=== PATIENT | female | born 1965 | race Caucasian/White ===

== ENCOUNTER 2021-02-25 14:19 | Outpatient (CLI) | payer BC, SELFPAY ==
[2021-02-25 14:23] VITALS: BP 133/85; PULSE 83; RESP 16; TEMP 36.6; O2SAT 97; BMI 35.4
[2021-02-25] MEDS: 0.9% Saline Lock 10 ML Syringe IV (14:25)
[2021-02-25 14:56] VITALS: BP 133/85; PULSE 73; RESP 16; TEMP 36.9; O2SAT 97
[2021-02-25 15:54] VITALS: BP 149/94; PULSE 76; RESP 16; TEMP 36.8; O2SAT 98
== END 2021-02-25 15:56 | disposition home or self-care (01) ==
LOC: MS3OUT 14:20 → MS3 14:20
PROVIDERS: PCP Internal Medicine; Referring Provider Internal Medicine Critical Care Medicine; Visit Provider Internal Medicine Critical Care Medicine
DX: Z23 Encounter for immunization (principal); U07.1 COVID-19
CPT/HCPCS: J7050; M0245; Q0245; A4216

== ENCOUNTER 2023-04-27 19:11 | Inpatient (IN) | payer BC, SELFPAY ==
[2023-04-27 19:17] VITALS: BP 143/70; PULSE 91; RESP 16; TEMP 37; O2SAT 97; BMI 40.9
--- NOTE | 2023-04-27 19:53 | EDS_ITS ---
HPI History of Present Illness Chief Complaint: ETOH Intox Informant: patient Narrative Narrative: Patient presents requesting help with alcohol detox. She has been drinking heavily since 2017. She states in the past when she tried to stop drinking she would get shaky and would have to take a drink to fend off the withdrawal. She is never had a withdrawal seizure. She is never been through a formal detox program. Her only other complaint is left knee pain. She twisted it yesterday and has some pain to the area. She is able to walk on it but does limp. [facility] Medical History (Updated 04/27/23 @ 19:[address] Nesha Conley MD) Arthritis Hx of gastroesophageal reflux (GERD) Knee pain Thyroid disease Home Medications levothyroxine 137 mcg tablet (Synthroid) 137 mcg PO DAILY 02/25/21 [History Last Taken Unknown] Allergy/AdvReac Type Severity Reaction Status Date / Time No Known Allergies Allergy Verified 04/27/23 19:16 Family History Other Cancer Heart disease Surgical History H/O oophorectomy H/O: hysterectomy ROS ROS ED Constitutional Constitutional ED: Denies chills or fever(s) Eyes Eyes: Denies discharge from eye(s) ENT ENT ED: Denies discharge from eye(s), rhinorrhea or sore throat Cardiovascular Cardiovascular: Denies chest pain or palpitations Respiratory/Chest Respiratory/Chest: Denies cough or dyspnea Gastrointestinal Gastrointestinal: Denies abdominal pain, nausea or vomiting Genitourinary Genitourinary ED: Denies dysuria Musculoskeletal Musculoskeletal: Reports extremity pain; Denies back pain Integumentary Denies Abrasions or rash Neurologic Neurologic: Denies headache(s) or weakness Allergic/Immunologic Allergic/Immunologic ED: Denies lip swelling or urticaria EXAM Physical Exam Const Vital Signs: 04/27/23 19:17 Temperature 98.6 F Temperature Source Temporal Pulse Rate 91 Respiratory Rate 16 Blood Pressure 143/70 H Blood Pressure Mean 94 Pulse Ox 97 Oxygen Delivery Method Room Air Positive well nourished and well developed General Appearance ED: well developed HEENT Reports moist mucous membranes Eyes EOMs intact bilaterally Chest Wall inspection of chest normal and palpation of chest normal Resp normal respiratory effort and clear to auscultation bilaterally Cardio regular rate and regular rhythm GI soft to palpation Extremity Extremity Narrative: Mild tenderness to palpation of the anterior left knee. No obvious deformity. Good range of motion. Neuro oriented x3 Neuro Narrative: No focal neurologic deficit. Skin Rashes: no rashes MDM MDM MDM Narrative Medical decision making narrative: Lab work for addiction medicine is entered. Left knee x-rays will be obtained to ensure no bony injury. I spoke with hospitalist who will be down to see the patient for admission. Discharge Plan Triage Chief Complaint: ETOH Intox ED Provider: Nesha Conley Dx/Rx/DC Orders Clinical Impression: Desire for detoxification, Alcohol abuse Prescriptions: No Action levothyroxine [Synthroid] 137 mcg tablet 137 mcg PO DAILY Primary Care Provider: Milana Delaney Referrals: Milana Delaney MD [Primary Care Provider] - Disposition Disposition: Acute Care Hospital [facility]
--- NOTE | 2023-04-27 19:53 | HP.PCM.HOS_ITS ---
HPI - General General Date of Admission: 04/27/23 Date of Service: 04/27/23 Chief Complaint: EtOH abuse, requesting detoxification. HPI Narrative The patient is a 57 y/o F w/ PMHx: GERD, Anxiety and Depression/Chronic insomnia, Hypothyroidism, Morbid obesity, EtOH abuse (wine/beer/vodka, heavy intake increasing since 2016 with of her father, last intake just prior to ED presentation ~ 2 bottles wine) with currently no overt withdrawal symptoms given recent intake but patient significantly interested in attaining sober status. She notes that she was involved with the care of her ailing father and following his in 2017 began drinking which progressed and she is currently taking care of her mother who is also dying. She also notes unfortunately the day prior she was at the top of the stairs with her grandchildren and was turned quickly unfortunately with onset of left knee discomfort primarily laterally which has been ongoing worse with attempted bending of the knee. She does note that she is attempted to quit drinking however when she decreases her intake she has onset of tremors which have made her very nervous. Workup in the ED included T98.6, heart rate 91, BP 143/70, respiratory rate 16, 97% on room air, pending CBC, CMP, UDS, EtOH level upon evaluation as well as plain film of the left knee given recent discomfort following quick turn and onset of left lateral knee pain the day prior. [facility] Medical History (Updated 04/27/23 @ 20:[address] Rach Fernández MD) Alcohol abuse Anxiety and depression Arthritis Chronic insomnia GERD (gastroesophageal reflux disease) Hypothyroidism Morbid obesity Home Medications acetaminophen 500 mg capsule 1,000 mg PO BID PRN pain 04/27/23 [History Last Taken 04/27/23] diphenhydramine HCl 25 mg capsule (Allergy Medication) 75 mg PO QHS 04/27/23 [History Last Taken 04/26/23] ibuprofen 200 mg tablet (Addaprin) 400 mg PO BID PRN pain 04/27/23 [History Last Taken 04/27/23] levothyroxine 150 mcg tablet (Euthyrox) 150 mcg PO DAILY 04/27/23 [History Last Taken 04/27/23] melatonin 10 mg capsule 15 mg PO DAILY 04/27/23 [History Last Taken 04/26/23] omeprazole 40 mg capsule,delayed release 40 mg PO DAILY 04/27/23 [History Last Taken 04/26/23] sertraline 50 mg tablet 50 mg PO DAILY 04/27/23 [History Last Taken 04/26/23] vitamin B complex (B Complex-Vitamin B12 tablet) 1 tab PO DAILY 04/27/23 [History Last Taken 04/27/23] Allergy/AdvReac Type Severity Reaction Status Date / Time No Known Allergies Allergy Verified 04/27/23 19:16 Family History (Updated 04/27/23 @ 20:[address] Rach Fernández MD) Mother Cancer CREST (calcinosis, Raynaud's phenomenon, esophageal dysfunction, sclerodactyly, telangiectasia) Father Heart disease Hypertension Surgical History (Updated 04/27/23 @ 20:[address] Rach Fernández MD) H/O oophorectomy H/O: hysterectomy Social History (Updated 04/27/23 @ 20:[address] Rach Fernández MD) household members: spouse Smoking Status: Never smoker alcohol intake: current alcohol intake frequency: 3 or more drinks per day Alcohol type: beer, wine and hard liquor details: Notes intake 6pck beer to 1/5th vodka daily as well as wine. substance use type: does not use ROS ROS Narrative Admission Review of Systems: CONSTITUTIONAL: No weight loss, fever, chills, + weakness or fatigue. HEENT: Eyes: No visual loss, blurred vision, double vision or yellow sclerae. Ears, Nose, Throat: No hearing loss, sneezing, congestion, runny nose or sore throat. SKIN: No rash or itching, lesions, wounds. CARDIOVASCULAR: No chest pain, chest pressure or chest discomfort, palpitations, edema, orthopnea, syncopal events. RESPIRATORY: No shortness of breath, cough or sputum, wheezing, hemoptysis. GASTROINTESTINAL: No anorexia, nausea, vomiting or diarrhea, abdominal pain, melena, BRBPR. GENITOURINARY: No dysuria, frequency, urgency or retention. NEUROLOGICAL: + Mild tremors with attempted EtOH decrease. No headache, dizziness, syncope, paralysis, ataxia, numbness or tingling in the extremities, focal weakness, change in bowel or bladder control, seizure. MUSCULOSKELETAL: + muscle, back pain, joint pain or stiffness. HEMATOLOGIC: No anemia, bleeding or bruising. LYMPHATICS: No enlarged nodes. No history of splenectomy. PSYCHIATRIC: + history of depression and anxiety/chronic insomnia. ENDOCRINOLOGIC: No reports of sweating, cold or heat intolerance. No polyuria or polydipsia. ALLERGIES: No history of asthma, hives, eczema or rhinitis. Vital Signs Vital Signs Vital Signs: 04/27/23 19:17 Temperature 98.6 F Temperature Source Temporal Pulse Rate 91 Respiratory Rate 16 Blood Pressure 143/70 H Blood Pressure Mean 94 Pulse Ox 97 Oxygen Delivery Method Room Air Weight Weight: 253 lb 8.505 oz Body Mass Index (BMI) 40.9 Physical Exam Narrative Physical Examination: General: Awake, alert, oriented x 3 and cooperative, seated upright in the ED bed in no apparent distress, no current withdrawal symptoms but when she is decreased her alcohol intake she does have onset immediately of tremors. Skin: Normal color, normal turgor, no icterus, no cyanosis. HEENT: AT/NC, EOMI, PERRLA, mildly dry MM, no carotid bruits or JVD noted: However thickened neck makes evaluation difficult. Lungs: CTA bilaterally, moderate effort, mild decrease BL bases, no rales, ronchi or wheezing. Heart: Regular rate and rhythm; no gallop, rub audible. Abdomen: Soft, morbidly obese, NTTP, ND, hyperactive BS, no appreciated HSM however habitus makes evaluation difficult. Extremities: No cyanosis, clubbing, or edema. Left knee with no marked swelling compared to the right knee with discomfort with bend but no specific discomfort with palpation of the lateral knee. Neurological: Patient awake, alert, oriented as noted, cognitive function intact; pupils equally reactive to light and accommodation, cranial nerves II- XII grossly normal, moving all 4 extremities however limited left knee movement given discomfort, strength mildly to moderately globally decreased given acute presentation and complaints. Psychiatric: Affect appears depressed, flat, does have underlying anxiety and depression. Assessment & Plan Assessment/Plan (1) Desire for detoxification: PLAN: Plan The patient is a 57 y/o F w/ PMHx: GERD, Anxiety and Depression/Chronic insomnia, Hypothyroidism, Morbid obesity, EtOH abuse (wine/beer/vodka, heavy intake increasing since 2017 with of her father, last intake just prior to ED presentation ~ 2 bottles wine) with currently no overt withdrawal symptoms given recent intake but patient significantly interested in attaining sober status. #1. Acute EtOH Withdrawal: Will admit to [facility] 3, routine labs obtained in the ED upon presentation and pending upon evaluation of patient. Given interest in sobriety, will initiate and continue on protocol with taper course of Phenobarbital, as needed gabapentin, Catapres, Bentyl, Vistaril, IV fluids, IV antiemetics, Tylenol as needed for pain. Will consult Case management for assistance for transition to next level of rehabilitation care. Mag, phos pending. Maintain on CIWA protocol concurrently. #2. Anxiety and depression/chronic insomnia, uncontrolled: We will continue patient home regimen of sertraline as well as melatonin/Benadryl but would advise strongly consideration of possible transition to low-dose trazodone nightly instead of heavy usage of Benadryl. Discussed at length with patient need for counseling as well as potential increase of her sertraline as she is on very low-dose. Likely this is heavily contributing to her alcohol abuse given her of her father and ongoing care for her ailing mother. #3. Elevated BP without hypertensive diagnosis: BP in the ED mildly elevated, potentially related with her acute presentation however will closely monitor and if appropriate add regimen, IV hydralazine in the interim. #4. Recent left knee injury, possible sprain: Plain film of the left knee pending upon evaluation, will request knee alyson wrap with activity/off with rest, icing, tylenol/IBU. #5. Hypothyroidism: Continue home synthroid regimen. She notes recent assessments of her thyroid function have been normal. #6. Morbid Obesity: Weight loss and lifestyle changes encouraged. #7. GERD: We will continue patient on PPI. #8. DVT prophylaxis: Low risk for type of admission. Charges/Coding Visit Charges Inpatient E&M: 50969 Init Hosp L2
--- NOTE | 2023-04-27 19:53 | EX.ED.SAOD ---
HPI History of Present Illness Chief Complaint: ETOH Intox Informant: patient Narrative Narrative: Patient presents requesting help with alcohol detox. She has been drinking heavily since 2017. She states in the past when she tried to stop drinking she would get shaky and would have to take a drink to fend off the withdrawal. She has never had a withdrawal seizure. She is never been through a formal detox program. Her only other complaint is left knee pain. She twisted it yesterday and has some pain to the area. She is able to walk on it but does limp. [facility] Medical History (Updated 04/27/23 @ 20:57 by Francisca Ivan) Alcohol abuse Anxiety and depression Arthritis Chronic insomnia GERD (gastroesophageal reflux disease) GI bleed Hypothyroidism Migraines Morbid obesity Home Medications acetaminophen 500 mg capsule 1,000 mg PO BID PRN pain 04/27/23 [History Last Taken 04/27/23] diphenhydramine HCl 25 mg capsule (Allergy Medication) 75 mg PO QHS 04/27/23 [History Last Taken 04/26/23] ibuprofen 200 mg tablet (Addaprin) 400 mg PO BID PRN pain 04/27/23 [History Last Taken 04/27/23] levothyroxine 150 mcg tablet (Euthyrox) 150 mcg PO DAILY 04/27/23 [History Last Taken 04/27/23] melatonin 10 mg capsule 15 mg PO DAILY 04/27/23 [History Last Taken 04/26/23] omeprazole 40 mg capsule,delayed release 40 mg PO DAILY 04/27/23 [History Last Taken 04/26/23] sertraline 50 mg tablet 50 mg PO DAILY 04/27/23 [History Last Taken 04/26/23] vitamin B complex (B Complex-Vitamin B12 tablet) 1 tab PO DAILY 04/27/23 [History Last Taken 04/27/23] Allergy/AdvReac Type Severity Reaction Status Date / Time No Known Allergies Allergy Verified 04/27/23 19:16 Family History (Updated 04/27/23 @ 20:[address] Rach Fernández MD) Mother Cancer CREST (calcinosis, Raynaud's phenomenon, esophageal dysfunction, sclerodactyly, telangiectasia) Father Heart disease Hypertension Surgical History (Updated 04/27/23 @ 20:[address] Rach Fernández MD) H/O oophorectomy H/O: hysterectomy Social History (Updated 04/27/23 @ 20:[address] Rach Fernández MD) household members: spouse Smoking Status: Never smoker alcohol intake: current alcohol intake frequency: 3 or more drinks per day Alcohol type: beer, wine and hard liquor details: Notes intake 6pck beer to 1/5th vodka daily as well as wine. substance use type: does not use ROS ROS ED Constitutional Constitutional ED: Denies chills or fever(s) Eyes Eyes: Denies discharge from eye(s) ENT ENT ED: Denies discharge from eye(s), rhinorrhea or sore throat Cardiovascular Cardiovascular: Denies chest pain or palpitations Respiratory/Chest Respiratory/Chest: Denies cough or dyspnea Gastrointestinal Gastrointestinal: Denies abdominal pain, nausea or vomiting Genitourinary Genitourinary ED: Denies dysuria Musculoskeletal Musculoskeletal: Reports extremity pain; Denies back pain Integumentary Denies Abrasions or rash Neurologic Neurologic: Denies headache(s) or weakness Allergic/Immunologic Allergic/Immunologic ED: Denies lip swelling or urticaria EXAM Physical Exam Const Vital Signs: 04/27/23 19:17 Temperature 98.6 F Temperature Source Temporal Pulse Rate 91 Respiratory Rate 16 Blood Pressure 143/70 H Blood Pressure Mean 94 Pulse Ox 97 Oxygen Delivery Method Room Air Positive well nourished and well developed General Appearance ED: well developed HEENT Reports moist mucous membranes Eyes EOMs intact bilaterally Chest Wall inspection of chest normal and palpation of chest normal Resp normal respiratory effort and clear to auscultation bilaterally Cardio regular rate and regular rhythm GI soft to palpation Extremity Extremity Narrative: Mild tenderness to palpation of the anterior left knee. No obvious deformity. Good range of motion. Neuro oriented x3 Neuro Narrative: No focal neurologic deficit. Skin Rashes: no rashes MDM MDM MDM Narrative Medical decision making narrative: Lab work for addiction medicine is entered. Left knee x-rays will be obtained to ensure no bony injury. I spoke with hospitalist who will be down to see the patient for admission. Discharge Plan Dx/Rx/DC Orders Clinical Impression: Desire for detoxification, Alcohol abuse Disposition Disposition: Acute Care Hospital [facility] Discharge Date/Time: 04/27/23 20:42
--- OUTSIDE RECORDS SUMMARY | 2023-04-27 20:02 | XMS RPT_ITS | CCD ---
Author Name Unknown Address [facility] [employer] [facility] [address] [place] [address] Organization [facility] Care Team Providers Care Electrolysis Needle Operator Name Role Phone PROVIDER, UNKNOWN Attending Unavailable VIRIDIANA MYRICK Referring Unavailable Viridiana Myrick Primary Care Unavailable Pcp, No Primary Care Provider Unavailabl e Unavailable Primary Care Provider Unavailabl e Results Test Name Value Interpretation Reference Range Facil ity Encounters Encounter Date Encounter Type Care Provider Facility Start: 01-09-2022 Documentation procedure Mammog parul Coordinator [facility] Start: 01-09-2022 Letter encounter Mammography Coordinator [facility] NOT LISTED Start: 01-09-2022 End: 01-09-2022 Subsequent hospital visit by physician Screen Mammo [facility] MAMMO REFLECTIONS [facility] Procedures Date Procedure Procedure Detail Performing Clinician Start: 01-09-2022 JEANE SCREENING W LISY Co rtsamantha Kanh Ramez Work Phone: Start: 01-09-2022 Mammography Screen Bat h Start: 12-20-2006 CONVERTED SURGICAL PATHOLOGY Demian Galloway Work Phone: Plan of Treatment Date Care Activity Detail Author Start: 01-09-2023 Mammography MAMMOGRAM [facility] Start: 12-01-2021 Influenza vaccination INFLUENZA (#1) [facility] Start: 07-28-2021 COVID-19 VACCINE (4 - Booster for Moderna series) COVID-19 VACCINE (4 - Booster for Moderna series) [facility] Start: 04-02-2021 DEPRESSION ASSESSMENT DEPRESSION ASS ESSMENT [facility] Start: 11-02-2017 [facility] Start: 2013 SHINGRIX VACCINE (1 of 2) SHINGRIX V ACCINE (1 of 2) [facility] Start: 2008 COLOGUARD (FIT-DNA) COLOGUARD (FIT-D NA) [facility] Start: 2008 Colonoscopy COLONOSCOPY [facility] Start: 2008 COLORECTAL CANCER SCREENING COLORECTAL CANCER SCREENING [facility] Start: [address] COLONOGRAPHY [facility] Start: 2008 FECAL OCCULT BLOOD FECAL OCCULT BLOO D [facility] Start: 2008 LIPID SCREEN LIPID SCREEN [facility] Start: 2008 SIGMOIDOSCOPY SIGMOIDOSCOPY [facility] Start: 1993 HPV TESTING HPV TESTING [facility] Start: 1984 PAP TESTING PAP TESTING [facility] Start: 1982 Urine microalbumin profile DTAP,TDAP ,TD (1 - Tdap) [facility] Start: 1981 HEPATITIS C SCREENING HEPATITIS C SC REENING [facility] Start: 1981 HIV SCREENING HIV SCREENING [facility] Start: 1965 HEPATITIS B (1 of 3 - 3-dose series) HEPATITIS B (1 of 3 - 3-dose series) [facility] Payers Date Payer Category Payer Unknown 1965 Unknown [id number] Social History Date Type Detail Facility Tobacco smoking stat [facility] Unknown if ever smoked [facility] Start: 1965 Sex Assigned At Not on file [facility] Tobacco smoking stat [facility] Tobacco smoking consumption unknown [facility] Start: 12-30-2021 End: 01-09-2022 Exposure to SARS-CoV-2 (event) Not sure [facility] Note 01-09-2022 Letter - Mammography Coordinator - 01/09/2022 2:36 PM EDT Note Date & Type Note Facility 01-09-2022 Miscellaneous Notes Formattin g of this note might be different from the original. [address] [address] January 09, 2022 PID: [id number] Lenore Romero [address] [place] [address] Dear Ms. Romero, We are pleased to inform you that the results of your recent breast imaging exam on 01/09/2022 are normal. Early detection of cancer is very important. We also understand recommendations regarding breast cancer screening are controversial. Please discuss with your primary care provider which strategy is best for you and whether a mammogram is right for you. Your imaging studies and report will be kept on file at [facility] as part of your permanent medical record and are available for your continuing care. Thank you for allowing us to help in meeting your health care needs. Sincerely, Dr. Partida Interpreting Radiologist [facility] (Normal over 40) documented in this encounter [facility] Summary Purpose Family History No Family History Records FoundNo Family History Records FoundNo Family History Records Found Advance Directives No Advanced Directives Records FoundNo Advanced Directives Records FoundNo Advanced Directives Records Found Additional Source Comments INFORMATION SOURCE (unrecogn ized section and content) DATE CREATED AUTHOR AUTHOR'S ORGANIZ ATION 03/20/2019 [facility] DATE CREATED AUTHOR AUTHOR'S ORGANIZ ATION 03/25/2019 [facility] Source Comments (unrecognize d section and content) In the event this informatio n is protected by the Federal Confidentiality of Alcohol and Drug Abuse Patient Records regulations: The Federal rules restrict any use of the information to criminally investigate or prosecute any alcohol or drug abuse patient.[facility] the event this information is protected by the Federal Confidentiality of Alcohol and Drug Abuse Patient Records regulations: The Federal rules restrict any use of the information to criminally investigate or prosecute any alcohol or drug abuse patient.[facility] the event this information is protected by the Federal Confidentiality of Alcohol and Drug Abuse Patient Records regulations: The Federal rules restrict any use of the information to criminally investigate or prosecute any alcohol or drug abuse patient.[facility] Reason for Visit (unrecogniz ed section and content) FOR RECORDS PERTAINING TO PATIENTS WHO ARE OR HAVE BEEN ENROLLED IN A CHEMICAL DEPENDENCY/SUBSTANCEABUSE PROGRAM, SOME INFORMATION MAY BE OMITTED. This clinical summary was aggregated from multiple sources. Caution should be exercised in using it in the provision of clinical care. This summary normalizes information from multiple sources, and as a consequence, information in this document may materially change the coding, format and clinical context of patient data. In addition, data may be omitted in some cases. CLINICAL DECISIONS SHOULD BE BASED ON THE PRIMARY CLINICAL RECORDS. [facility] [employer] provides no warranty or guarantee of the accuracy or completeness of information in this document.
[2023-04-27 20:07] VITALS: BP 134/86; PULSE 89; RESP 16; TEMP 36.6; O2SAT 99
--- OUTSIDE RECORDS SUMMARY | 2023-04-27 20:15 | XMS RPT_ITS | CCD ---
Author Name Unknown Address [facility] [employer] [facility] [address] [place] [address] Organization [facility] Care Team Providers Care Energy Consultant Name Role Phone PROVIDER, UNKNOWN Attending Unavailable VIRIDIANA MYRICK Referring Unavailable Viridiana Myrick Primary Care Unavailable Pcp, No Primary Care Provider Unavailabl e Unavailable Primary Care Provider Unavailabl e Results Test Name Value Interpretation Reference Range Facil ity Encounters Encounter Date Encounter Type Care Provider Facility Start: 01-09-2022 Documentation procedure Mammog parul Coordinator [facility] Start: 01-09-2022 Letter encounter Mammography Coordinator [facility] Start: 01-09-2022 End: [...] Author Start: 01-09-2023 Mammography MAMMOGRAM [facility] Start: 12-01-2021 Influenza vaccination INFLUENZA (#1) [facility] Start: 07-28-2021 COVID-19 VACCINE (4 - Booster for Moderna series) COVID-19 VACCINE (4 - Booster for Moderna series) [facility] Start: 04-02-2021 DEPRESSION ASSESSMENT DEPRESSION ASS ESSMENT [facility] Start: 11-02-2017 [facility] Start: 2013 SHINGRIX VACCINE (1 of 2) SHINGRIX V ACCINE (1 of 2) [facility] Start: 2008 COLOGUARD (FIT-DNA) COLOGUARD (FIT-D NA) [facility] Start: 2008 Colonoscopy COLONOSCOPY [facility] Start: 2008 COLORECTAL CANCER SCREENING COLORECTAL CANCER SCREENING [facility] Start: [address] COLONOGRAPHY [facility] Start: 2008 FECAL OCCULT BLOOD FECAL OCCULT BLOO D [facility] Start: 2008 LIPID SCREEN LIPID SCREEN [facility] Start: 2008 SIGMOIDOSCOPY SIGMOIDOSCOPY [facility] Start: 1993 HPV TESTING HPV TESTING [facility] Start: 1984 PAP TESTING PAP TESTING [facility] Start: 1982 Urine microalbumin profile DTAP,TDAP ,TD (1 - Tdap) [facility] Start: 1981 HEPATITIS C SCREENING HEPATITIS C SC REENING [facility] Start: 1981 HIV SCREENING HIV SCREENING [facility] Start: 1965 HEPATITIS B (1 of 3 - 3-dose series) HEPATITIS B (1 of 3 - 3-dose series) [facility] Payers Date Payer Category Payer Unknown 1965 Unknown [id number] Social History Date Type Detail Facility Tobacco smoking stat [facility] Unknown if ever smoked [facility] Start: 1965 Sex Assigned At Not on file [facility] Tobacco smoking stat [facility] Tobacco smoking consumption unknown [facility] Start: 12-30-2021 End: 01-09-2022 Exposure to SARS-CoV-2 (event) Not sure [facility] Note 01-09-2022 Letter - Mammography Coordinator - 01/09/2022 2:36 PM EDT Note Date & Type Note Facility 01-09-2022 Miscellaneous Notes Formattin g of this note might be different from the original. [address] [address] January 09, 2022 PID: [id number] Lenore Romero [address] [place] [address] Dear Ms. Romero, We are pleased to [...] be kept on file at [facility] as part of your permanent medical record and are available for your continuing care. Thank you for allowing us to help in meeting your health care needs. Sincerely, Dr. Partida Interpreting Radiologist [facility][1] Breast [facility] (Normal over 40) documented in this encounter [facility] Summary Purpose Family History No Family History Records FoundNo Family History Records FoundNo Family History Records Found Advance Directives No Advanced Directives Records FoundNo Advanced Directives Records FoundNo Advanced Directives Records Found Additional Source Comments INFORMATION SOURCE (unrecogn ized section and content) DATE CREATED AUTHOR AUTHOR'S ORGANIZ ATION 03/20/2019 [facility] DATE CREATED AUTHOR AUTHOR'S ORGANIZ ATION 03/25/2019 [facility] Source Comments (unrecognize d section and content) In the event this informatio n is protected by the Federal Confidentiality of Alcohol and Drug Abuse Patient Records regulations: The Federal rules restrict any use of the information to criminally investigate or prosecute any alcohol or drug abuse patient.[facility] the event this information is protected by the Federal Confidentiality of Alcohol and Drug Abuse Patient Records regulations: The Federal rules restrict any use of the information to criminally investigate or prosecute any alcohol or drug abuse patient.[facility] the event this information is protected by the Federal Confidentiality of Alcohol and Drug Abuse Patient Records regulations: The Federal rules restrict any use of the information to criminally investigate or prosecute any alcohol or drug abuse patient.[facility] Reason for Visit (unrecogniz ed section [...] BE BASED ON THE PRIMARY CLINICAL RECORDS. [facility] [employer] provides no warranty or guarantee of the accuracy or completeness of information in this document.
--- NOTE | 2023-04-27 20:20 | RAD_ITS ---
STUDY: X-RAY - LEFT KNEE REASON FOR EXAM: Female, 57 years old. injury TECHNIQUE: 4 view(s) of the knee. COMPARISON: None. FINDINGS: Osteophytosis of the distal femur, proximal tibia and posterior patella. Otherwise normal visualized distal femur. Normal visualized proximal tibia and fibula. There is arthrosis of the proximal tibiofibular articulation. There is no demonstrated fracture. There is mild degenerative arthrosis of the medial femorotibial compartment. There is mild degenerative arthrosis of the lateral femorotibial compartment. There is severe degenerative arthrosis of the patellofemoral articulation. Trace joint fluid. The soft tissue structures are unremarkable. RAD/Knee 4 or More Views IMPRESSION: Degenerative disease, more severe along the patellofemoral articulation. No acute fracture or subluxation. Electronically Signed: Oly Joy MD at 21:20 EST ,
[2023-04-27 20:21] VITALS: BMI 39.9
[2023-04-27 20:35] VITALS: BP 146/78; PULSE 64; RESP 16; TEMP 36.4; O2SAT 99
[2023-04-27 20:45] VITALS: BP 136/85; PULSE 79; RESP 16; TEMP 36.8; O2SAT 94
--- OUTSIDE RECORDS SUMMARY | 2023-04-27 20:53 | XMS RPT_ITS | CCD ---
Author Name Unknown Address [facility] [employer] [facility] [address] [place] [address] Organization [facility] Care Team Providers Care Fishing Vessel Deckhand Name Role Phone PROVIDER, UNKNOWN Attending Unavailable VIRIDIANA MYRICK Referring Unavailable Viridiana Myrick Primary Care Unavailable Pcp, No Primary Care Provider Unavailabl e Unavailable Primary Care Provider Unavailabl e Results Test Name Value Interpretation Reference Range Facil ity Encounters Encounter Date Encounter Type Care Provider Facility Start: 01-09-2022 Documentation procedure Mammog parul Coordinator [facility] Start: 01-09-2022 Letter encounter Mammography Coordinator [facility] Start: 01-09-2022 End: [...] Activity Detail Author Start: 01-09-2023 Mammography MAMMOGRAM [facility] Start: 12-01-2021 Influenza vaccination INFLUENZA (#1) [facility] Start: 07-28-2021 COVID-19 VACCINE (4 - Booster for Moderna series) COVID-19 VACCINE (4 - Booster for Moderna series) [facility] Start: 04-02-2021 DEPRESSION ASSESSMENT DEPRESSION ASS ESSMENT [facility] Start: 11-02-2017 DIABETES SCREEN [facility]EN [facility] Start: 2013 SHINGRIX VACCINE (1 of 2) SHINGRIX V ACCINE (1 of 2) [facility] Start: 2008 COLOGUARD (FIT-DNA) COLOGUARD (FIT-D NA) [facility] Start: 2008 Colonoscopy COLONOSCOPY [facility] Start: 2008 COLORECTAL CANCER SCREENING COLORECTAL CANCER SCREENING [facility] Start: [address] COLONOGRAPHY [facility] Start: 2008 FECAL OCCULT BLOOD FECAL OCCULT BLOO D [facility] Start: 2008 LIPID SCREEN LIPID SCREEN [facility] Start: 2008 SIGMOIDOSCOPY SIGMOIDOSCOPY [facility] Start: 1993 HPV TESTING HPV TESTING [facility] Start: 1984 PAP TESTING PAP TESTING [facility] Start: 1982 Urine microalbumin profile DTAP,TDAP ,TD (1 - Tdap) [facility] Start: 1981 HEPATITIS C SCREENING HEPATITIS C SC REENING [facility] Start: 1981 HIV SCREENING HIV SCREENING [facility] Start: 1965 HEPATITIS B (1 of 3 - 3-dose series) HEPATITIS B (1 of 3 - 3-dose series) [facility] Payers Date Payer Category Payer Unknown 1965 Unknown [id number] Social History Date Type Detail Facility Tobacco smoking stat [facility] Unknown if ever smoked [facility] Start: 1965 Sex Assigned At Not on file [facility] Tobacco smoking stat [facility] Tobacco smoking consumption unknown [facility] Start: 12-30-2021 End: 01-09-2022 Exposure to SARS-CoV-2 (event) Not sure [facility] Note 01-09-2022 Letter - Mammography Coordinator - 01/09/2022 2:36 PM EDT Note Date & Type Note Facility 01-09-2022 Miscellaneous Notes Formattin g of this note might be different from the original. [address] [address] January 09, 2022 PID: [id number] Lenore Romero [address] [place] [address] Dear Ms. Romero, We are pleased to [...] report will be kept on file at [facility] as part of your permanent medical record and are available for your continuing care. Thank you for allowing us to help in meeting your health care needs. Sincerely, Dr. Partida Interpreting Radiologist [facility] Breast [facility] (Normal over 40) documented in this encounter [facility] Summary Purpose Family History No Family History Records FoundNo Family History Records FoundNo Family History Records Found Advance Directives No Advanced Directives Records FoundNo Advanced Directives Records FoundNo Advanced Directives Records Found Additional Source Comments INFORMATION SOURCE (unrecogn ized section and content) DATE CREATED AUTHOR AUTHOR'S ORGANIZ ATION 03/20/2019 [facility] DATE CREATED AUTHOR AUTHOR'S ORGANIZ ATION 03/25/2019 [facility] Source Comments (unrecognize d section and content) In the event this informatio n is protected by the Federal Confidentiality of Alcohol and Drug Abuse Patient Records regulations: The Federal rules restrict any use of the information to criminally investigate or prosecute any alcohol or drug abuse patient.[facility] the event this information is protected by the Federal Confidentiality of Alcohol and Drug Abuse Patient Records regulations: The Federal rules restrict any use of the information to criminally investigate or prosecute any alcohol or drug abuse patient.[facility] the event this information is protected by the Federal Confidentiality of Alcohol and Drug Abuse Patient Records regulations: The Federal rules restrict any use of the information to criminally investigate or prosecute any alcohol or drug abuse patient.[facility] Reason for Visit (unrecogniz ed section [...] BE BASED ON THE PRIMARY CLINICAL RECORDS. [facility] [employer] provides no warranty or guarantee of the accuracy or completeness of information in this document.
[2023-04-27 21:24] LABS: Amphetamine Urine VISTA NEGATIVE (<1000 ng/mL); Barbiturate Urine VISTA NEGATIVE (< 200 ng/mL); Benzodiazepine Urine VISTA NEGATIVE (< 200 ng/mL); Cocaine Urine VISTA NEGATIVE (< 300 ng/mL); Ecstacy Urine VISTA NEGATIVE (< 500 ng/mL); Methadone Urine VISTA NEGATIVE (< 300 ng/mL); PCP Urine VISTA NEGATIVE (< 25 ng/mL); THC Urine VISTA NEGATIVE (< 50 ng/mL); Vista UDS pH Range 5
[2023-04-27] MEDS: Phenobarbital 32.4 MG Tablet 64.7999999999999972 MG PO (21:27)
[2023-04-27] MEDS: Lactated Ringers 1,000 ML 125 ML IV (21:27)
[2023-04-27 21:37] LABS: ALB/GLOB Ratio 1.2 RATIO (0.9-2.4); AST(SGOT) 33 U/L (15-37); Alanine Aminotransfer ALT/SGPT 48 U/L (13-56); Albumin, Serum 3.9 g/dL (3.2-5.0); Alkaline Phosphatase 84 U/L (45-117); Anion Gap 6 (5-15); BUN 10 mg/dL (7-18); BUN/Creat Ratio 15.5 RATIO (10-20); Calcium,Total 8.8 mg/dL (8.5-10.1); Chloride 106 mmol/L (98-107); Creatinine, Serum 0.65 mg/dL (0.55-1.02); EST Glomerular Filtration Rate 99 mL/min (>60); Est Glom Filt Rate - Afr Amer 120 mL/min (>60); Estimated Creatinine Clearance 118.43 ml/min; Globulin 3.3 g/dL (2.2-4.2); Glucose 111 mg/dL (74-106); Magnesium 2.6 mg/dL (1.6-2.6); Potassium 3.9 mmol/L (3.5-5.1); Protein, Total 7.2 g/dL (6.4-8.2); Sodium Level 137 mmol/L (136-145)
--- OUTSIDE RECORDS SUMMARY | 2023-04-27 21:49 | XMS RPT_ITS | CCD ---
Author Name Unknown Address [facility] [employer] [facility] [address] [place] [address] Organization [facility] Care Team Providers Care Senior Lead Java Developer Name Role Phone PROVIDER, UNKNOWN Attending Unavailable VIRIDIANA MYRICK Referring Unavailable Viridiana Myrick Primary Care Unavailable Pcp, No Primary Care Provider Unavailabl e Unavailable Primary Care Provider Unavailabl e Results Test Name Value Interpretation Reference Range Facil ity Encounters Encounter Date Encounter Type Care Provider Facility Start: 01-09-2022 Documentation procedure Mammog parul Coordinator [facility] Start: 01-09-2022 Letter encounter Mammography Coordinator [facility] Start: 01-09-2022 End: [...] Activity Detail Author Start: 01-09-2023 Mammography MAMMOGRAM [facility] Start: 12-01-2021 Influenza vaccination INFLUENZA (#1) [facility] Start: 07-28-2021 COVID-19 VACCINE (4 - Booster for Moderna series) COVID-19 VACCINE (4 - Booster for Moderna series) [facility] Start: 04-02-2021 DEPRESSION ASSESSMENT DEPRESSION ASS ESSMENT [facility] Start: 11-02-2017 [facility]ABET[facility]CRE[facility] Start: 2013 SHINGRIX VACCINE (1 of 2) SHINGRIX V ACCINE (1 of 2) [facility] Start: 2008 COLOGUARD (FIT-DNA) COLOGUARD (FIT-D NA) [facility] Start: 2008 Colonoscopy COLONOSCOPY [facility] Start: 2008 COLORECTAL CANCER SCREENING COLORECTAL CANCER SCREENING [facility] Start: [address] COLONOGRAPHY [facility] Start: 2008 FECAL OCCULT BLOOD FECAL OCCULT BLOO D [facility] Start: 2008 LIPID SCREEN LIPID SCREEN [facility] Start: 2008 SIGMOIDOSCOPY SIGMOIDOSCOPY [facility] Start: 1993 HPV TESTING HPV TESTING [facility] Start: 1984 PAP TESTING PAP TESTING [facility] Start: 1982 Urine microalbumin profile DTAP,TDAP ,TD (1 - Tdap) [facility] Start: 1981 HEPATITIS C SCREENING HEPATITIS C SC REENING [facility] Start: 1981 HIV SCREENING HIV SCREENING [facility] Start: 1965 HEPATITIS B (1 of 3 - 3-dose series) HEPATITIS B (1 of 3 - 3-dose series) [facility] Payers Date Payer Category Payer Unknown 1965 Unknown [id number] Social History Date Type Detail Facility Tobacco smoking stat [facility] Unknown if ever smoked [facility] Start: 1965 Sex Assigned At Not on file [facility] Tobacco smoking stat [facility] Tobacco smoking consumption unknown [facility] Start: 12-30-2021 End: 01-09-2022 Exposure to SARS-CoV-2 (event) Not sure [facility] Note 01-09-2022 Letter - Mammography Coordinator - 01/09/2022 2:36 PM EDT Note Date & Type Note Facility 01-09-2022 Miscellaneous Notes Formattin g of this note might be different from the original. [address] [address] January 09, 2022 PID: [id number] Lenore Romero [address] [place] [address] Dear Ms. Romero, We are pleased to [...] report will be kept on file at [facility] as part of your permanent medical record and are available for your continuing care. Thank you for allowing us to help in meeting your health care needs. Sincerely, Dr. Partida Interpreting Radiologist [facility] Breast [facility] (Normal over 40) documented in this encounter [facility] Summary Purpose Family History No Family History Records FoundNo Family History Records FoundNo Family History Records Found Advance Directives No Advanced Directives Records FoundNo Advanced Directives Records FoundNo Advanced Directives Records Found Additional Source Comments INFORMATION SOURCE (unrecogn ized section and content) DATE CREATED AUTHOR AUTHOR'S ORGANIZ ATION 03/20/2019 [facility] DATE CREATED AUTHOR AUTHOR'S ORGANIZ ATION 03/25/2019 [facility] Source Comments (unrecognize d section and content) In the event this informatio n is protected by the Federal Confidentiality of Alcohol and Drug Abuse Patient Records regulations: The Federal rules restrict any use of the information to criminally investigate or prosecute any alcohol or drug abuse patient.[facility] the event this information is protected by the Federal Confidentiality of Alcohol and Drug Abuse Patient Records regulations: The Federal rules restrict any use of the information to criminally investigate or prosecute any alcohol or drug abuse patient.[facility] the event this information is protected by the Federal Confidentiality of Alcohol and Drug Abuse Patient Records regulations: The Federal rules restrict any use of the information to criminally investigate or prosecute any alcohol or drug abuse patient.[facility] Reason for Visit (unrecogniz ed section and [...] BE BASED ON THE PRIMARY CLINICAL RECORDS. [facility] [employer] provides no warranty or guarantee of the accuracy or completeness of information in this document.
[2023-04-27 21:51] LABS: Phosphorus 3.5 mg/dL (2.5-4.9)
[2023-04-27] MEDS: DiphenhydrAMINE 25 MG Capsule 75 MG PO (22:59)
[2023-04-27] MEDS: MELATONIN 10 MG TABLET 15 MG PO (22:59)
[2023-04-28] VITALS (7 sets, daily range): BP systolic 139–157; BP diastolic 72–95; PULSE 73–92; RESP 16–18; TEMP 36.5–36.8; O2SAT 95–98
[2023-04-28] MEDS: Phenobarbital 32.4 MG Tablet 64.7999999999999972 MG PO ×6 (01:27→21:03)
[2023-04-28] MEDS: Acetaminophen 325 MG Tablet 650 MG PO ×2 (01:30→08:34)
[2023-04-28] MEDS: Dicyclomine 10 MG Capsule 20 MG PO (05:08)
[2023-04-28] MEDS: Levothyroxine 150 MCG Tablet PO (05:08)
[2023-04-28] MEDS: Ibuprofen 600 MG Tablet PO (05:08)
--- NOTE | 2023-04-28 08:30 | PN.HOSP_ITS ---
Reason for Visit Reason for Visit: 57-year-old lady with history of chronic alcohol dependence admitted with acute alcohol withdrawal Objective Data Objective Data Vital Signs: Vital Signs Temp Pulse Resp BP Pulse Ox O2 Del Method 97.7 F L 73 16 149/90 H 95 Room Air 04/28/23 05:03 04/28/23 05:03 04/28/23 05:03 04/28/23 05:03 04/28/23 08:16 04/28/23 08:16 Oxygen Delivery Method Room Air Weight: 112.3 kg Body Mass Index (BMI) 39.9 Intake & Output: Intake and Output for Last 24 Hours 04/26/23 04/27/23 04/28/23 23:59 23:59 23:59 Intake Total 2049 Balance 2049 Lab / Micro Data 04/27/23 20:30 Labs: Laboratory Results - last 24 hr 04/27/23 20:30: Sodium 137, Potassium 3.9, Chloride 106, Carbon Dioxide 25.0, Anion Gap 6, BUN 10, Creatinine 0.65, Estim Creat Clear Calc 118.43, Est GFR (MDRD) Af Amer 120, Est GFR (MDRD) Non-Af 99, BUN/Creatinine Ratio 15.5, Glucose 111 H, Calcium 8.8, Phosphorus 3.5, Magnesium 2.6, Total Bilirubin 0.20, AST 33, ALT 48, Alkaline Phosphatase 84, Total Protein 7.2, Albumin 3.9, Globulin 3.3, Albumin/Globulin Ratio 1.2, Ethyl Alcohol 195.0 04/27/23 21:00: Urine Opiates Screen NEGATIVE, Urine Methadone Screen NEGATIVE, Ur Barbiturates Screen NEGATIVE, Ur Phencyclidine Scrn NEGATIVE, Ur Amphetamines Screen NEGATIVE, MDMA (Ecstasy) Screen NEGATIVE, U Benzodiazepines Scrn NEGATIVE, Urine Cocaine Screen NEGATIVE, U Cannabinoids Screen NEGATIVE, Ur Drug Screen Comment Radiography Diagnostic Testing: Radiology Impression Knee X-Ray 04/27/23 20:20 IMPRESSION: Degenerative disease, more severe along the patellofemoral articulation. No acute fracture or subluxation. Electronically Signed: Oly Joy MD at 21:20 EST , Physical Exam Narrative GENERAL: cooperative HEENT: Atraumatic; normocephalic EYES; Anicteric, Normal Conjunctiva NECK; supple, normal thyroid, RESPIRATORY: Diminished to auscultation CARDIOVASCULAR: Regular S1 S2, GI: soft, normoactive bowel sounds, : No Renal angle tenderness; EXTREMITIES: No edema, no clubbing, MUSCULOSKELETAL: no muscle wasting NEURO: Awake; no lateralizing signs. SKIN: No Rash PSYCH; Flat affect Assessment & Plan Assessment/Plan (1) Desire for detoxification: PLAN: Plan 57-year-old lady with history of chronic alcohol dependence admitted with acute alcohol withdrawal 1. Acute alcohol withdrawal 0admitted to regular nursing floor managed with phenobarb taper as well as ad juvant medications for her other symptoms 2. Hypothyroidism - Patient is on levothyroxine home dose continued 3. Depression with anxiety ? Patient is on sertraline 4. Class III obesity with BMI of 40.0 ? Complicating care weight loss advised 5. GERD ? On PPI 6. Elevated blood pressure ? Patient not a known hypertensive, will continue monitoring vitals and start antihypertensives if patient blood pressure does not improve 7. DVT prophylaxis ? SC Lovenox Time spent in the patient's overall evaluation,decision-making process, review of diagnostic data, adjustment of management, discussion with other providers, nursing nursing and ancillary staff involved in patient's care documentation, 50 Minutes Charges/Coding Visit Charges Inpatient E&M: 68306 [facility] L3
[2023-04-28] MEDS: Folic Acid 1 MG Tablet PO (08:32)
[2023-04-28] MEDS: Multivitamins,Ther W-Minerals Tablet 1 TABLET PO (08:32)
[2023-04-28] MEDS: Thiamine Hydrochloride 100 MG Tablet PO (08:32)
[2023-04-28] MEDS: Pantoprazole Sodium 40 MG Tablet PO (08:33)
[2023-04-28] MEDS: Sertraline 50 MG Tablet PO (08:34)
[2023-04-28] MEDS: Ondansetron 8 MG Tablet PO (08:35)
--- NOTE | 2023-04-28 10:48 | ADDICTION ---
This loan underwriter met with client who is a 57 year old female. She was admitted to the [facility] 04/27/23 via ER arriving by car, accompanied by . Client reports her drinking became problematic in 2016 after her father . Prior to this she started drinking after the of her last son. When she had medical emergency and required hysterectomy. 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 Pt. reports her family is support-she has two adult sons and is . She has sister who is in recovery from ETOH dependence. This is pt.'s first time in detox, she denies h/o substance/ETOH treatment. She admits to drinking at least 1/5 Vodka, 6 pack beer daily, and sometimes wine. She reports she will attend events at her holiness while intoxicated. Denies legal issues. Information/education provided re: treatment options. Client resides in [facility]). She would like to do individual counseling and explore 12-step meetings. Unsure of where she would like to treatment. [facility] ([place] [facility]) and [facility] (Main office or [facility] [place] [place]) options provided. Referrals will be completed Sunday 04/30.
[2023-04-28] MEDS: Enoxaparin 40 MG/0.4 ML Syringe SC (16:38)
[2023-04-28] MEDS: Arthritis Pain Compound 60 CLICK TUBE TOPICAL ×2 (16:39→21:03)
[2023-04-28] MEDS: DiphenhydrAMINE 25 MG Capsule 75 MG PO (21:03)
[2023-04-28] MEDS: MELATONIN 10 MG TABLET 15 MG PO (21:04)
[2023-04-28] MEDS: Gabapentin 300 MG Capsule PO (21:04)
[2023-04-29] VITALS (8 sets, daily range): BP systolic 116–158; BP diastolic 64–89; PULSE 71–100; RESP 16–18; TEMP 36.6–36.9; O2SAT 95–99
[2023-04-29] MEDS: Phenobarbital 32.4 MG Tablet 64.7999999999999972 MG PO ×6 (01:23→20:41)
[2023-04-29] MEDS: Levothyroxine 150 MCG Tablet PO (05:44)
--- NOTE | 2023-04-29 07:09 | PCM.PN.HOSP ---
Subjective Subjective Patient seen still complains of some tremors. Patient is considering Vivitrol on discharge Objective Data Objective Data Vital Signs: Vital Signs Temp Pulse Resp BP Pulse Ox O2 Del Method 98 F 71 16 158/89 H 98 Room Air 04/29/23 01:22 04/29/23 01:22 04/29/23 01:22 04/29/23 01:22 04/29/23 01:22 04/29/23 01:22 Oxygen Delivery Method Room Air Weight: 112.3 kg Body Mass Index (BMI) 39.9 Intake & Output: Intake and Output for Last 24 Hours 04/27/23 04/28/23 04/29/23 23:59 23:59 23:59 Intake Total 3550 / 3700 500 / 500 Balance 3550 / 3700 500 / 500 Lab / Micro Data 04/27/23 20:30 Physical Exam Narrative GENERAL: cooperative HEENT: Atraumatic; normocephalic EYES; Anicteric, Normal Conjunctiva NECK; supple, normal thyroid, RESPIRATORY: Diminished to auscultation CARDIOVASCULAR: Regular S1 S2, GI: soft, normoactive bowel sounds, : No Renal angle tenderness; EXTREMITIES: No edema, no clubbing, MUSCULOSKELETAL: no muscle wasting NEURO: Awake; no lateralizing signs. SKIN: No Rash PSYCH; Flat affect Assessment & Plan Assessment/Plan (1) Desire for detoxification: PLAN: Plan 57-year-old lady with history of chronic alcohol dependence admitted with acute alcohol withdrawal 1. Acute alcohol withdrawal ?Admitted to regular nursing floor managed with phenobarb taper as well as adjuvant medications for her other symptoms ? 04/29/2023; patient seen she is considering receiving Vivitrol on discharge 2. Hypothyroidism - Patient is on levothyroxine home dose continued 3. Depression with anxiety ? Patient is on sertraline 4. Class III obesity with BMI of 40.0 ? Complicating care weight loss advised 5. GERD ? On PPI 6. Elevated blood pressure ? Patient not a known hypertensive, will continue monitoring vitals and start antihypertensives if patient blood pressure does not improve 7. DVT prophylaxis ? SC Lovenox Time spent in the patient's overall evaluation,decision-making process, review of diagnostic data, adjustment of management, discussion with other providers, nursing nursing and ancillary staff involved in patient's care documentation, 35 minutes Charges/Coding Visit Charges Inpatient E&M: 66644 Subs Hosp L2
[2023-04-29] MEDS: Multivitamins,Ther W-Minerals Tablet 1 TABLET PO (08:36)
[2023-04-29] MEDS: Folic Acid 1 MG Tablet PO (08:36)
[2023-04-29] MEDS: Thiamine Hydrochloride 100 MG Tablet PO (08:36)
[2023-04-29] MEDS: Pantoprazole Sodium 40 MG Tablet PO (08:55)
[2023-04-29] MEDS: Arthritis Pain Compound 60 CLICK TUBE TOPICAL ×2 (08:56→20:41)
[2023-04-29] MEDS: Sertraline 50 MG Tablet PO (08:56)
[2023-04-29] MEDS: Enoxaparin 40 MG/0.4 ML Syringe SC (08:56)
[2023-04-29] MEDS: Dicyclomine 10 MG Capsule 20 MG PO (13:17)
[2023-04-29] MEDS: Senna Tablet 2 TABLET PO (13:17)
[2023-04-29] MEDS: DiphenhydrAMINE 25 MG Capsule 75 MG PO (20:41)
[2023-04-29] MEDS: MELATONIN 10 MG TABLET 15 MG PO (20:41)
[2023-04-29] MEDS: Ibuprofen 600 MG Tablet PO (20:46)
[2023-04-30] MEDS: Phenobarbital 32.4 MG Tablet 64.7999999999999972 MG PO ×3 (01:24→10:44)
[2023-04-30 05:34] VITALS: BP 133/74; PULSE 71; RESP 14; TEMP 36.6; O2SAT 99
[2023-04-30] MEDS: Levothyroxine 150 MCG Tablet PO (05:35)
--- NOTE | 2023-04-30 08:53 | PN.HOSP_ITS ---
Reason for Visit Reason for Visit: alcohol withdrawal. Subjective Subjective Feels well. No events overnight. Objective Data Objective Data Vital Signs: Vital Signs Temp Pulse Resp BP Pulse Ox O2 Del Method 36.6 C 71 14 133/74 H 99 Room Air 04/30/23 05:34 04/30/23 05:34 04/30/23 05:34 04/30/23 05:34 04/30/23 05:34 04/30/23 05:34 Oxygen Delivery Method Room Air Weight: 112.3 kg Body Mass Index (BMI) 39.9 Intake & Output: Intake and Output for Last 24 Hours 04/28/23 04/29/23 04/30/23 23:59 23:59 23:59 Intake Total 3550 / 3700 1500 / 2000 600 / 600 Balance 3550 / 3700 1500 / 2000 600 / 600 Lab / Micro Data 04/27/23 20:30 Physical Exam Const alert and no apparent distress HEENT head/scalp atraumatic and moist oral mucous membranes Assessment & Plan Assessment/Plan (1) Desire for detoxification: PLAN: Plan Acute alcohol withdrawal * Admitted to regular nursing floor managed with phenobarb taper as well as adjuvant medications for her other symptoms * 04/29/2023; patient seen she is considering receiving Vivitrol on discharge * 04/30: Patient overall doing well no events overnight. Patient still contemplating Vivitrol. Explained the patient that she can follow-up with 180 to see if this would be an option for her as outpatient. Patient has an appointment scheduled for May. Chronic conditions: * Hypothyroidism- Patient is on levothyroxine home dose continued * Depression with anxiety? Patient is on sertraline * Class III obesity with BMI of 40.0. Complicating care weight loss advised * GERD? On PPI * Elevated blood pressure? Patient not a known hypertensive, will continue monitoring vitals and start antihypertensives if patient blood pressure does not improve DC home
[2023-04-30 09:31] VITALS: BP 132/90; PULSE 72; RESP 18; TEMP 36.7; O2SAT 98
[2023-04-30] MEDS: Sertraline 50 MG Tablet PO (09:34)
[2023-04-30] MEDS: Thiamine Hydrochloride 100 MG Tablet PO (09:34)
[2023-04-30] MEDS: Folic Acid 1 MG Tablet PO (09:34)
[2023-04-30] MEDS: Pantoprazole Sodium 40 MG Tablet PO (09:35)
[2023-04-30] MEDS: Multivitamins,Ther W-Minerals Tablet 1 TABLET PO (09:36)
[2023-04-30] MEDS: Arthritis Pain Compound 60 CLICK TUBE TOPICAL (09:36)
--- NOTE | 2023-04-30 11:34 | PCM.DC.SUM ---
Providers Date of Admission: 04/27/23 Primary Care Physician: VISH REYES MD Reason For Visit: ETOH ABUSE Diagnosis Discharge Diagnosis (1) Desire for detoxification: Status: Acute Plan Acute alcohol withdrawal Admitted to regular nursing floor managed with phenobarb taper as well as adjuvant medications for her other symptoms 04/29/2023; patient seen she is considering receiving Vivitrol on discharge 04/30: Patient overall doing well no events overnight. Patient still contemplating Vivitrol. Explained the patient that she can follow-up with 180 to see if this would be an option for her as outpatient. Patient has an appointment scheduled for May. Chronic conditions: Hypothyroidism- Patient is on levothyroxine home dose continued Depression with anxiety? Patient is on sertraline Class III obesity with BMI of 40.0. Complicating care weight loss advised GERD? On PPI Elevated blood pressure? Patient not a known hypertensive, will continue monitoring vitals and start antihypertensives if patient blood pressure does not improve DC home Medications at Discharge Home Medications acetaminophen 500 mg capsule 1,000 mg PO BID PRN pain 04/27/23 diphenhydramine HCl 25 mg capsule (Allergy Medication) 75 mg PO QHS 04/27/23 ibuprofen 200 mg tablet (Addaprin) 400 mg PO BID PRN pain 04/27/23 levothyroxine 150 mcg tablet (Euthyrox) 150 mcg PO DAILY 04/27/23 melatonin 10 mg capsule 15 mg PO DAILY 04/27/23 omeprazole 40 mg capsule,delayed release 40 mg PO DAILY 04/27/23 sertraline 50 mg tablet 50 mg PO DAILY 04/27/23 vitamin B complex (B Complex-Vitamin B12 tablet) 1 tab PO DAILY 04/27/23 multivitamin 1 tab PO DAILY #30 tabs 04/30/23 Hospital Course Operations None Procedures None Weight / BMI Weight Weight: 112.3 kg Body Mass Index (BMI) 39.9 ABG / Lab / Microbiology Data 04/27/23 20:30 D/C Instructions Discharge Diet: No restrictions Meaningful Use Info Meaningful Use Diagnoses (Choose all that apply): None applicable Discharge Plan Admission Admit Date/Time: 04/27/23 19:55 Primary Reason for Your Visit: Alcohol withdrawal. Attending Provider: Jose Melissa Primary Care Provider: VISH REYES Consulting Providers: Rach Fernández; Jc Pierre Instructions Additional Instructions / Restrictions: Follow up with [facility]. Discharge Orders/Prescriptions Prescriptions: New multivitamin Tablet 1 tab PO DAILY Qty: 30 0RF Continued sertraline 50 mg tablet 50 mg PO DAILY omeprazole 40 mg capsule,delayed release(DR/EC) 40 mg PO DAILY levothyroxine [Euthyrox] 150 mcg tablet 150 mcg PO DAILY vitamin B complex [B Complex-Vitamin B12] Tablet 1 tab PO DAILY melatonin 10 mg capsule 15 mg PO DAILY diphenhydramine HCl [Allergy Medication] 25 mg capsule 75 mg PO QHS acetaminophen 500 mg capsule 1,000 mg PO BID PRN (Reason: pain) ibuprofen [Addaprin] 200 mg tablet 400 mg PO BID PRN (Reason: pain) Referrals / Follow Up: Milana Delaney MD [Med Staff - Windshield Repair Technician] - VISH REYES MD [Primary Care Provider] - Disposition Disposition (needs filled in before D/C Order can be placed): Home, Self Care Charges/Coding Visit Charges Inpatient E&M: 86910 Disch Hosp
== END 2023-04-30 14:02 | disposition home or self-care (01) | DRG 897 ==
LOC: ED 20:00 → MS3 21:47
PROVIDERS: Admitting Provider Family Medicine; Emergency Provider Emergency Medicine; PCP Family Medicine
DX: F10.239 Alcohol dependence with withdrawal, unspecified (principal); Z68.41 Body mass index [BMI] 40.0-44.9, adult; E03.9 Hypothyroidism, unspecified; E66.01 Morbid (severe) obesity due to excess calories; M17.12 Unilateral primary osteoarthritis, left knee; S83.92XA Sprain of unspecified site of left knee, initial encounter; K21.9 Gastro-esophageal reflux disease without esophagitis; F41.8 Other specified anxiety disorders; Z79.1 Long term (current) use of non-steroidal anti-inflammatories (NSAID); R03.0 Elevated blood-pressure reading, without diagnosis of hypertension; Y90.9 Presence of alcohol in blood, level not specified
CPT/HCPCS: 73564; 80053; 80307; 80320; 83735; 84100; 99283; J7120; G0480

== ENCOUNTER 2023-11-19 14:33 | Emergency (ER) | payer OTHER, SELFPAY ==
[2023-11-19 14:34] VITALS: BP 157/103; PULSE 78; RESP 16; TEMP 36.8; O2SAT 96; BMI 39.6
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
[2023-11-19 16:42] VITALS: BP 135/84; PULSE 74; RESP 18; O2SAT 98
[2023-11-19 16:54] VITALS: BP 136/84; PULSE 72; RESP 18; TEMP 36.7; O2SAT 100
== END 2023-11-19 16:55 | disposition home or self-care (01) ==
LOC: ED 16:48
PROVIDERS: Emergency Provider Emergency Medicine; PCP Family Medicine; Visit Provider Emergency Medicine
DX: S39.012A Strain of muscle, fascia and tendon of lower back, initial encounter (principal); M43.6 Torticollis; S16.1XXA Strain of muscle, fascia and tendon at neck level, initial encounter; Y92.410 Unspecified street and highway as the place of occurrence of the external cause; V49.40XA Driver injured in collision with unspecified motor vehicles in traffic accident, initial encounter; R26.2 Difficulty in walking, not elsewhere classified; E03.9 Hypothyroidism, unspecified; F41.9 Anxiety disorder, unspecified; F32.A Depression, unspecified; K21.9 Gastro-esophageal reflux disease without esophagitis
CPT/HCPCS: 99282

== ENCOUNTER → 2023-11-22 | Outpatient (CLI) | payer OTHER, SELFPAY ==
--- NOTE | 2023-11-22 15:25 | RAD_ITS ---
STUDY: X-RAY - PELVIS REASON FOR EXAM: Female, 58 years old. Weakness of both lower extremities. TECHNIQUE: One view of the pelvis was obtained. COMPARISON: None. FINDINGS: Normal bowel gas pattern with air seen to the rectum. Moderate amount of feces in the colon. Clips projected over the upper left pelvis and central pelvis. Osteopenia. Mild arthrosis of both sacroiliac joints. Normal visualized bilateral superior and inferior pubic rami. Mild arthrosis of the symphysis pubis. Normal ischial tuberosities. Mild arthrosis of both hips. RAD/Pelvis 1 or 2 Views IMPRESSION: Osteopenia with mild osteoarthritic changes as described. Electronically Signed: Oumar Gavin MD at 15:56 EDT ,
--- NOTE | 2023-11-22 15:25 | RAD_ITS ---
STUDY: X-RAY - LUMBAR SPINE REASON FOR EXAM: Female, 58 years old. Weakness of both lower extremities. TECHNIQUE: 3 view(s) of the lumbar spine were obtained. COMPARISON: None FINDINGS: Osteopenia. Normal lordosis. Mild levoscoliosis. 11 mm of anterolisthesis of L4 on L5. Diffuse moderate lower thoracic and lumbosacral facet sclerosis. Diffuse intervertebral disc space narrowing most marked at L4-5 and L5-S1 with small osteophytes. Surgical clips projected over the left pelvis and lower mid pelvis. RAD/Lumbar Spine 2 or 3 Views IMPRESSION: Osteopenia with moderate lower lumbosacral spondylosis. Electronically Signed: Oumar Gavin MD at 15:55 EDT ,
== END | disposition home or self-care (01) ==
LOC: RAD 15:09
PROVIDERS: PCP Family Medicine
DX: R29.898 Other symptoms and signs involving the musculoskeletal system (principal); M79.604 Pain in right leg; M79.605 Pain in left leg; R20.2 Paresthesia of skin
CPT/HCPCS: 72100; 72170

== ENCOUNTER → 2023-12-11 | Outpatient (CLI) | payer OTHER, SELFPAY ==
--- NOTE | 2023-12-11 14:02 | RAD_ITS ---
INDICATION: PAIN EXAMINATION/TECHNIQUE: X-RAY - RIGHT XR Knee 3 Views COMPARISON: None. FINDINGS: No acute fracture or malalignment. Severe, medial compartment predominant, tricompartmental joint space narrowing and osteophytosis. No joint effusion. The soft tissues are unremarkable. RAD/Knee 3 Views IMPRESSION: No acute abnormalities. Severe, medial compartment predominant, tricompartmental degenerative arthrosis of the knee. Electronically Signed: Daniel Brownlee MD at 17:42 EDT ,
--- NOTE | 2023-12-11 14:02 | RAD_ITS ---
INDICATION: PAIN EXAMINATION/TECHNIQUE: X-RAY - LEFT XR Knee 3 Views 3 VIEWS COMPARISON: Prior study dated: 04/27/2023 FINDINGS: SOFT TISSUES: Mild soft tissue prominence throughout. No radiopaque foreign body. BONES/JOINTS: No acute fracture or subluxation.. Normal alignment of the medial and lateral compartments with small marginal osteophytes noted. Loss of the patellofemoral compartment joint space. Prominent marginal osteophytes present. Lateral positioning of the patella. No definite joint effusion. No sclerotic or destructive changes observed. RAD/Knee 3 Views IMPRESSION: No fracture or malalignment. Tricompartmental degenerative changes which are severe at the patellofemoral compartment. Electronically Signed: Ramy Rice MD at 17:18 EDT ,
== END | disposition home or self-care (01) ==
PROVIDERS: PCP Family Medicine; Referring Provider Physician Assistant; Visit Provider Physician Assistant
DX: M25.561 Pain in right knee (principal); M25.562 Pain in left knee
CPT/HCPCS: 73562

== ENCOUNTER → 2023-12-19 | Outpatient (CLI) | payer OTHER, SELFPAY ==
--- NOTE | 2023-12-19 08:56 | NEURO ---
NCS and/or EMG Patient Report Ordering Doctor: Viridiana Kidd DATE OF SERVICE: 12/19/23 Yasmin presents for electrodiagostic testing of the lower limbs. She reports numbness and burning in both legs. Electrodiagnostic findings: Peroneal motor nerve demonstrates normal distal latency, amplitude and conduction velocity bilaterally. Tibial motor response is within normal limits bilaterally. Normal peroneal and tibial F?waves. H?reflex normal bilaterally. Sensory responses are normal. Needle EMG testing was performed the lower limbs. All muscles tested showed no evidence of denervation with normal motor unit action potentials. Electrodiagnostic impression: This is a normal electrodiagnostic study in the lower limbs. There is no electrodiagnostic evidence for peripheral neuropathy or lumbosacral radiculopathy. If symptoms persist could consider nerve biopsy to evaluate for small fiber neuropathy. Multi Select Codes Neurology Neurology Interp Codes: 95771-26 Musc test done w/n test comp (interp) (2) and 65398-07 Nrv cndj test 9-10 studies (interp)
== END | disposition home or self-care (01) ==
LOC: PSN 07:13
PROVIDERS: PCP Family Medicine
DX: R29.898 Other symptoms and signs involving the musculoskeletal system (principal); M79.604 Pain in right leg; R20.2 Paresthesia of skin
CPT/HCPCS: 95886; 95911

== ENCOUNTER → 2024-01-08 | Outpatient (CLI) | payer OTHER, SELFPAY ==
--- NOTE | 2024-01-08 08:57 | VDLE_ITS ---
Reason For Study: Pain in legs RIGHT LEFT GSV is normal. GSV is normal. CFV is compressible, spontaneous, phasic, CFV is compressible, spontaneous, phasic, competent and demonstrates normal competent, and demonstrates normal augmentation. augmentation. FV is compressible, spontaneous, phasic, FV is compressible, spontaneous, phasic, competent and demonstrates normal competent and demonstrates normal augmentation. augmentation. POP V is compressible, spontaneous, phasic, POP V is compressible, spontaneous, phasic, competent and demonstrates normal competent and demonstrates normal augmentation. augmentation. T/P Trunk is compressible. T/P Trunk is compressible. PTV is compressible. PTV is compressible. RT PerV is compressible. LT PerV is compressible. Procedure This is a venous duplex using B-mode, color flow and spectral Doppler. Exam performed in department. A preliminary report was called and/or faxed to Bernabe CEDENO. VL/Venous Duplex US - Lopez Extrem Interpretation Summary Deep veins of the bilateral lower extremities are patent and compressible segme ntally. There is no evidence of bilateral lower extremity deep vein thrombosis. The bilateral great saphenous veins appear patent and compressible segmentally. Ordering Physician: GABY SANDOVAL Referring Physician: Darcy Miller Performed By: Niki Beltran RVT
--- NOTE | 2024-01-08 08:58 | ART_ITS ---
Reason For Study: Pain in legs Procedure A bilateral lower extremity continuous wave Doppler with analog waveform analysis and ankle brachial indexes. Left Segmental Pressures Left brachial= 136mmHg. Left posterior tibial artery = 167mmHg. Left dorsalis pedis artery = 156mmHg. The left dorsalis pedis waveforms are triphasic. The left posterior tibial artery waveforms are triphasic. Right Segmental Pressures Right brachial= 139mmHg. Right posterior tibial artery = 166mmHg. Right dorsalis pedis artery = 16mmHg. The right dorsalis pedis waveforms are triphasic. The right posterior tibial artery waveforms are triphasic. Indices The right ankle brachial index by the dorsalis pedis is 1.19. The right ankle brachial index by the posterior tibial artery is 1.19. The left ankle brachial index by the dorsalis pedis is 1.12. The left ankle brachial index by the posterior tibial artery is 1.20. VL/Ankle Brachial Index Interpretation Summary Right TALAT 1.19, normal. Doppler/PVR waveforms of the right ankle normal at rest . Left TALAT 1.2, normal. Doppler/PVR waveforms of the left ankle normal at rest. Ordering Physician: GABY SANDOVAL Referring Physician: Darcy Miller Performed By: Niki Beltran RVT
== END | disposition home or self-care (01) ==
LOC: CVS 08:48
PROVIDERS: PCP Family Medicine
DX: M79.605 Pain in left leg (principal); M79.604 Pain in right leg; I73.9 Peripheral vascular disease, unspecified
CPT/HCPCS: 93922; 93970

== ENCOUNTER → 2024-01-16 | Outpatient (CLI) | payer OTHER, SELFPAY ==
--- NOTE | 2024-01-16 13:56 | BD_ITS ---
STUDY: DUAL ENERGY X-RAY ABSORPTIOMETRY / DXA REASON FOR EXAM: Female, 58 years old. 627.8Menopausal postmenopausalBONE DENSITY REASON FOR EXAM TECHNIQUE: Bone Mineral Density (BMD) measurements of lumbar spine and bilateral hips were obtained. COMPARISON: None. FINDINGS: Lumbar Spine (L1-L4): g/cm2 (0.818) / T-score (-1.8) / Z-score (-0.4) Findings are suggestive of osteopenia with a moderate fracture risk. Left Femur Total: g/cm2 (0.896) / T-score (-0.4) / Z-score (0.6) Left Femoral Neck: g/cm2 (0.724) / T-score (-1.1) / Z-score (0.2) Right Femur Total: g/cm2 (0.862) / T-score (-0.7) / Z-score (0.3) Right Femoral Neck: g/cm2 (0.664) / T-score (-1.7) / Z-score (-0.4) BD/Dexa Bone Density Study IMPRESSION: The patient is considered osteopenic as outlined below according to World William Organization (WHO) criteria with a moderate fracture risk. Reference Information: The T-score is the number of standard deviations above or below the standard which is normal for young adults at their peak bone mineral density. The World Health Organization (WHO) interprets the T-scores as follows: Above -1 Normal bone density Between -1 and -2.5 Osteopenia Equal to / or below -2.5 Osteoporosis As a practical clinical guideline, osteopenia may be graded as follows: Mild -1 through -1.5 Moderate -1.6 through -2.0 Severe -2.1 through -2.4 The Z-score is the number of standard deviations above or below age-matched controls. A Z-score of less than -1.5 would be considered abnormal. References: 1. NIH Osteoporosis and Related Bone Diseases www osteo.org 2. International Society for Clinical Densitometry www iscd.org 3. National Osteoporosis Foundation www nof.org Electronically Signed: Bogdan Helton MD at 13:28 EDT ,
== END | disposition home or self-care (01) ==
LOC: OPBD 13:50
PROVIDERS: PCP Family Medicine
DX: Z78.0 Asymptomatic menopausal state (principal)
CPT/HCPCS: 77080

== ENCOUNTER 2024-03-17 14:30 | Outpatient (RCR) | payer OTHER, SELFPAY ==
--- NOTE | 2024-01-23 11:51 | HP.PTEVAL_ITS ---
Patient's Visit Information Visit Information Visit Information: JOVITA JACOME is a 58 year old F referred to Physical Therapy by Dr. Sergio Leong DO with a diagnosis of B knee OA. Date of Evaluation: 01/15/24 Physical Therapist: Andrew Walters DPT Visit Plan Frequency: 2x /Week Duration: 6 Weeks Plan: in aquatic setting 1) hip and LE strengthening 2) HS stretching, knee mobilization Subjective Subjective: Pt. is here today for her initial evaluation with diagnosis of B knee OA. Pt. reports having knee pain for a few years. Pt. reports earlier this year she was going down her steps and felt a pop in her L knee. Pt. has been battling pain since. Increases pain: squatting, prolonged standing, steps, getting up from lower surfaces. Pt. denies N/T. Pt. reports having grinding her knees frequently. Pt. is hopeful to not to have to have surgery due to have a wedding to attend next year. Pt. reports no calf pain, but does have some d ifficulty with getting around. She is generally sleeping okay. Pain L knee: Pain Intensity (Out of 10): 2 Pain Intensity Range: 1 and 4 R knee: Pain Intensity (Out of 10): 1 Pain Intensity Range: 0 and 4 Objective Objective: POSTURE: Pt. tends to wt. shift to R side in stance. Pt. lacks TKE in BLEs worse on L side. PALPATION: Pt. has some medial joint line pain of B knees, L knee has lateral joint line pain as well. NEURO: Pt. has normal sensation in BLEs. Pt. has normal DTR of BLEs. PT. is able to able to rise on heels and toes without issues. ROM: L knee 0-5-103deg. R knee: 0-2-109deg. Pt. has tightness in B HS as well. MMT: R knee: ext 18.3#, flexion 12.4#; hip: flexion 11.2#, abd 10.3#. L knee: ext 16.9#, flexion 11.1#; hip: flexion 9.9#, abd 10.1#. Core strength poor. GAIT: pt. ambulates without AD, but lacks TKE in either LE. Decent knee flexion with swing phase. STAIRS: PT. tends to descend in lateral fashion, applying load to RLE only. Ascending is better, but still has marked functional weakness bilaterally. Balance/Special Test Scores Lower Extremity Functional Score: 37 Goals Goal 1:: LTG: Pt. to be I with HEP. Goal Time Frame: 4-6 Weeks Goal 2:: STG: Pt. to have increased B knee extension to full allowing for better tolerance to walking. Goal Time Frame: 2-4 Weeks Goal 3:: LTG: Pt. to have increased B LE strength increased by 5# throughout. (currently R knee: ext 18.3#, flexion 12.4#; hip: flexion 11.2#, abd 10.3#. L knee: ext 16.9#, flexion 11.1#; hip: flexion 9.9#, abd 10.1#.) Goal Time Frame: 4-6 Weeks Goal 4:: LTG: pt. to ambulate unlimited distances without increase in B knee pain. Goal Time Frame: 4-6 Weeks Goal 5:: LTG: Pt. to negotiate steps with reciprocal pattern without increase in B knee pain. Goal Time Frame: 4-6 Weeks Rehabilitation Potential Physical Therapy Diagnosis: Pt. has signs and symptoms consistent with B knee OA. Pt. has marked hypomobility, weakness, difficulty with gait and decreased tolerance with functional mobility. Pt. would benefit from PT to increase her hip and LE strength in order to reduce stress to B knees with functional mobility. Rehabilitation Potential: Good Anticipated Interventions Patient/Client Instruction: Educate patient on: Condition, Plan of Care, Risk Factors and Benefits of Fitness Program For the Purpose of:: To improve decision making, To facilitate caregiver knowledge, To improve self management, To prevent re-injury and To improve ability to perform tasks related to life management Therapeutic Exercise to Include: Strength training, Power training, Coordination, Flexibilty training, Gait and locomotor training, In an aquatic setting, Passive ROM and Active ROM For the Purpose of:: To decrease pain, To increase ROM, To improve nutrient delivery to tissue, To increase oxygenation perfusion, To improve muscle performance and motor function, To improve gait and locomotor functions, To improve health of tissue, To decrease soft tissue restriction and To increase flexibility/ROM Text: Thank you for the opportunity to evaluate your patient. For Medicare and Medicare HMO plans, please review the plan of care and approve it. It will need to be FAXED BACK to us at [phone] for Medicare purposes. For Medicare only, by signing this I certify the plan of care. Please let me know if there are questions or concerns regarding this plan of care. Physician Signature: Date:
== END 2024-03-17 19:00 | disposition home or self-care (01) ==
LOC: PT 14:30
PROVIDERS: PCP Family Medicine; Visit Provider Orthopaedic Surgery
DX: M17.0 Bilateral primary osteoarthritis of knee (principal)
CPT/HCPCS: 97113; 97161

== ENCOUNTER → 2024-08-12 | Outpatient (CLI) | payer OTHER, SELFPAY ==
--- NOTE | 2024-08-12 09:28 | STEWCON_ITS ---
Reason For Study Reason For Study: CHEST PAIN Stress Results Protocol: Balaji Protocol WITH DEFINITY Maximum Predicted HR: 159 bpm Target HR: 135 bpm % Maximum Predicted HR: 99 % DurationHeart Rate Stage (mm:ss) (bpm) BP Comment BASELINE 64 130/862.5 CC DEFINITY STAGE 1 3:00 118 134/72 STAGE 2 3:00 150 150/82STAGE FEELING A LITTLE MORE WINDED STAGE 3 0:30 157 / 1.5 CC DEFINITY TOTAL RECOVERY 75 138/80 Stress Duration: 6:30 mm:ss Maximum Stress HR: 157 bpm Baseline Echocardiogram Findings Stress Echo Wall motion Data Resting WM Intermediate WM Stress WM Doppler Measurements & Calculations TR max jose: 237.9 cm/sec TR max P.6 mmHg ECHO/Stress Test Echo W/Contrast Interpretation Summary Exercise stress echo. 59-year-old lady with a history of chest pain. Resting EKG demonstrates sinus rhythm with a rate of 63 bpm normal intervals ar e noted resting blood pressure is 130/86 mmHg. The patient exercised according to regular Balaji protocol for total durat ion of 6-1/2 minutes the maximum heart rate attained was 157 bpm which was 98% of maximum predicted heart rate the max imum workload was 8.5 metabolic equivalents. Patient maintained sinus rhythm throughout the recording. At rest there were no ST or T wave changes noted suggest ischemia and at peak exercise upsloping ST changes were noted we did no t meet the criteria for ischemia at the peak blood pressure was 170/90 mmHg. No clinical angina was noted. The rate-pre ssure product was 22,500. Good blood pressure response to exercise was noted. Stress echocardiogram. The resting echocardiogram demonstrated overall preserve d left ventricular systolic function estimated at 60%. With exercise there was thickening of all borja and reduction of the ventricular cavity size. Images were obtained with and without Definity enhancement. There was improvement in v entricular ejection fraction to 70% with no regional wall motion abnormalities present. Conclusion: Exercise stress echo with no EKG or echocardiographic criteria for ischemia at the workload attained. Ordering Physician: Viridiana Myrick Referring Physician: Viridiana Myrick Performed By: Tahir Cerda RCS
== END | disposition home or self-care (01) ==
LOC: CVS 09:25
PROVIDERS: PCP Family Medicine; Referring Provider Physician Assistant; Visit Provider Physician Assistant
DX: R07.89 Other chest pain (principal)
CPT/HCPCS: 93017; 93350; Q9957; A4216; C8928

== ENCOUNTER → 2025-03-11 | Outpatient (CLI) | payer OTHER, SELFPAY ==
--- NOTE | 2025-03-11 09:59 | RAD_ITS ---
PROCEDURE: KNEE 4 OR MORE VIEWS 03/11/2025 REASON FOR EXAM: CHRONIC KNEE PAIN TECHNIQUE: Procedure Code: RADKN Modality: DX Procedure: KNEE 4 OR MORE VIEWS Laterality: Left COMPARISON: None FINDINGS: Images of the left knee demonstrate no evidence of fracture or dislocation. There is severe arthritis of the patellofemoral joint. There is lateral displacement of the patella consistent with medial patellar retinacular insufficiency. There is moderate arthritis of the medial joint space compartment of the knee. There is moderate arthritis of the lateral joint space compartment of the knee. There is no knee joint effusion. The periarticular soft tissues are normal. RAD/Knee 4 or More Views IMPRESSION: Moderate to severe tricompartment arthritis. Reading Location: [place] [id number]
--- NOTE | 2025-03-11 09:59 | RAD_ITS ---
PROCEDURE: KNEE 4 OR MORE VIEWS 03/11/2025 REASON FOR EXAM: CHRONIC KNEE PAIN TECHNIQUE: Procedure Code: RADKN Modality: DX Procedure: KNEE 4 OR MORE VIEWS Laterality: Right COMPARISON: None FINDINGS: Marginal patellar, femoral, and tibial osteophytes without acute fracture or subluxation. Medial as well as patellofemoral joint space narrowing and mild lateral patellar tilt. Tiny right knee effusion. RAD/Knee 4 or More Views IMPRESSION: Tricompartmental osteoarthritic degenerative changes of the right knee greatest in the medial as well as patellofemoral compartments. No fracture or subluxation. Reading Location: [place]
== END | disposition home or self-care (01) ==
LOC: MTRAD 09:59
PROVIDERS: PCP Family Medicine; Referring Provider Orthopaedic Surgery; Visit Provider Orthopaedic Surgery
DX: M17.0 Bilateral primary osteoarthritis of knee (principal)
CPT/HCPCS: 73564